=== PATIENT | male | born 2000 | race Caucasian/White ===

== ENCOUNTER 2024-06-01 10:21 | Outpatient (REF) | payer OTHER, SELFPAY ==
--- OUTSIDE RECORDS SUMMARY | 2024-06-01 11:07 | XMS_ITS | Encounter Summary ---
Author Organization [facility] Address [address] [place] [address] Phone Care Team Providers Care Chemical Laboratory Technician Name Role Phone Harley Salinas MD Primary Care Provider [phone] Reason for Visit * Reason Onset Date Comments Med Refill 12/24/2019 Encounter Details Date Type Department Care Team (Late st Contact Info) Description 12/24/2019 Refill [facility] - [place] [address] [place] [address] Harley Salinas MD [address] [place] [address] Current moderate episode of major depressive disorder without prior episode Social History Tobacco Use Types Packs/Day Years Used Date Smoking Tobacco: Never Smokeless Tobacco: Never Alcohol Use Standard Drinks/Week Comments No 0 (1 standard drink = 0.6 oz pur e alcohol) Hunger/Food Answer Date Recorded In the last 12 months, did y ou or your family ever eat less than you felt you should because there wasn't enough money for food? No 10/20/2019 Stable Housing Answer Date Recorded Are you worried that in the next 2 months you may not have stable housing? No 10/20/2019 Transportation Concerns Answer Date Rec orded In the last 12 months, have you or your family ever had to go without healthcare because you didn't have a way to get there? No 10/20/2019 Hazards in Home Answer Date Recorded Think about the place you li ve. Do you have problems with any of the following? Pests (mice or roaches), mold, no/not working smoke detectors, water leaks, no window guards. No 2019 Financing Utilities Answer Date Recorde d In the last 12 months, has t he electric, gas, oil, or water company threatened to shut off your services in your home? No 10/20/2019 Safety at Home Answer Date Recorded Are you or your family worried about feeling saf e in your home? No 10/20/2019 Outside Support Answer Date Recorded Do you feel that you need mo re support from other people or programs to help you care for yourself or your family? No 10/20/2019 Understanding Health Concerns Answer Da te Recorded Do you need help understandi ng your or your child's healthcare needs (diagnosis, medications, plan, etc.)? No 10/20/2019 Financing Health Concerns Answer Date R ecorded In the last 12 months, was t here a time when your child needed to see a doctor or get medications or supplies but could not because of cost? No 10/20/2019 Missing School or Work Answer Date Alber rded Did you or your child miss s chool or work because of a health problem that could have been avoided? No 10/20/2019 Sex and Gender Information Value Date Recorded Sex Assigned at Not on file Legal Sex Male 2:54 PM EST Gender Identity Male 10/17/2020 2:47 PM EDT Sexual Orientation Not on file documented as of this encounter Miscellaneous Notes * Telephone Encounter - Harley Salinas MD - 12/25/2019 12:12 PM EDT Please schedule a med check appt with me chago * Telephone Encounter - Chantell Nova LPN - 12/25/2019 7:56 AM EDT Refill requested for Kwadwo???s: Fluxetine Dose: 10 MG Refill request source: [facility] This medication was last refilled on 11/19/19. An office visit is not recommended. To be faxed electronically. [facility]/pharmacy #[id number] - [address] [address] PCP: Harley Salinas MD documented in this encounter Plan of Treatment Not on file documented as of this encounter Visit Diagnoses Diagnosis Current moderate episode of major depressive disorder without prior episode documented in this encounter Care Teams Chemical Laboratory Technician Relationship Specialty Start Date End Date Harley Salinas MD [address] [place] [address] PCP - General 06/19/16 01/16/23 documented as of this encounter
--- OUTSIDE RECORDS SUMMARY | 2024-06-01 11:07 | XMS_ITS | Encounter Summary ---
Author Organization [facility] Address [address] [place] [address] Phone Care Team Providers Care Roping Tender Name Role Phone Harley Salinas MD Primary Care Provider [phone] Reason for Visit * Reason Comments Med Refill Encounter Details Date Type Department Care Team (Late st Contact Info) Description 12/23/2019 Refill [facility] - [place] [address] [place] [address] Harley Salinas MD [address] [place] [address] Current moderate episode of major depressive disorder [...] on file documented as of this encounter Plan of Treatment Not on file documented as of this encounter Visit Diagnoses Diagnosis Current moderate episode of major depressive disorder without prior episode documented in this encounter Care Teams Roping Tender Relationship Specialty Start Date End Date Harley Salinas MD [address] [place] [address] PCP - General 06/19/16 01/16/23 documented as of this encounter
--- OUTSIDE RECORDS SUMMARY | 2024-06-01 11:07 | XMS_ITS | Encounter Summary ---
Author Organization [facility] Address [address] [place] [address] Phone Care Team Providers Care Residential Property Manager Name Role Phone Harley Salinas MD Primary Care Provider [phone] Reason for Visit * Reason Onset Date Comments Med Refill 12/25/2019 Encounter Details Date Type Department Care Team (Late st Contact Info) Description 12/25/2019 Refill [facility] Pediatrics - [place] [address] [place] [address] Harley Salinas MD [address] [place] [address] Current moderate episode of major depressive disorder [...] encounter Miscellaneous Notes * Telephone Encounter - Graciela Pierre LPN - 12/25/2019 2:43 PM EDT Duplicate request for fluoxetine. Rx sent documented in this encounter Plan of Treatment Not on file documented as of this encounter Visit Diagnoses Diagnosis Current moderate episode of major depressive disorder without prior episode documented in this encounter Care Teams Residential Property Manager Relationship Specialty Start Date End Date Harley Salinas MD [address] [place] [address] PCP - General 06/19/16 01/16/23 documented as of this encounter
--- OUTSIDE RECORDS SUMMARY | 2024-06-01 11:08 | XMS_ITS | Encounter Summary ---
Author Organization [facility] Address [address] [place] [address] Phone Care Team Providers Care Furnace Feeder Name Role Phone Harley Salinas MD Primary Care Provider [phone] Encounter Details Date Type Department Care Team (Late st Contact Info) Description 12/05/2016 Conversion Encounter [facility] Pediatrics - [address], [address] [place] [address] Harley Salinas MD [address] [place] [address] Social History Tobacco Use Types Packs/Day Years Used Date Smoking Tobacco: Never Assessed Sex and Gender Information Value Date Recorded Sex Assigned at Not on file Legal Sex Male 2:54 PM EST Gender Identity Male 10/17/2020 2:47 PM EDT Sexual Orientation Not on file documented as of this encounter Plan of Treatment Not on file documented as of this encounter Visit Diagnoses Not on filedocumented in this encounter Care Teams Furnace Feeder Relationship Specialty Start Date End Date Harley Salinas MD [address] [place] [address] PCP - General 06/19/16 01/16/23 documented as of this encounter
--- OUTSIDE RECORDS SUMMARY | 2024-06-01 11:08 | XMS_ITS | Clinical Summary ---
Author Organization [facility] Address [address] [place] [address] Phone Care Team Providers Care Remote Operations Producer Name Role Phone Unavailable Primary Care Provider Unavailabl e Allergies Active Allergy Reactions Criticality Noted Date Comments Cat Dander 11/01/2017 Dog Epithelium 11/01/2017 Dust Mite Extract 11/01/2017 Pollen Extract 11/01/2017 Tree Extract 11/01/2017 Medications escitalopram 10 MG tabletIndication s:Depression, unspecified depression type TAKE 1 TABLET BY MOUTH EVERY DAY IN THE MORNING 90 tablet Active Additional Information Patient not taking.Reported on 04/24/2022 Active Problems Problem Noted Date Diagnosed Date History of COVID-19 04/19/2022 Marijuana use 11/17/2020 Overview (11/17/2020): Daily use 10/2020 - requesting medical marijuana card for anxiety Assessment & Plan (11/17/2020 6:39 AM EDT): Recommend meeting with Yudith Puga at [facility] to discuss marijuana use Depression 10/22/2019 Overview (01/19/2021): Noted 09/2019 - referred for therapy Fluoxetine trial 10/2019 improved PHQ9 score - stopped on own 04/2020 as he felt 'dull' Suicide attempt in 2019 Assessment & Plan (01/19/2021 12:27 PM EDT): Moderate to severe depression. Recommend immediate therapy intervention and would also start another anti-depressant. Recommend trial of escitalopram 10 mg daily with recheck in one week. Referring for [facility] intervention, and then may refer to [facility] counseling services or community Assessment & Plan (11/17/2020 6:51 AM EDT): Recommend re-evaluation by Yudith Puga at [facility] and reconsideration of different SSRI or other medication. Recheck planned in one month Assessment & Plan (04/18/2020 2:34 PM EST): Stable -- continue current care Assessment & Plan (02/05/2020 10:36 AM EDT): Stable on current medication dose. Recommend continue therapy, continue fluoxetine at current dose. Recheck at annual well visit - to be scheduled in next few months Assessment & Plan (01/12/2020 8:22 AM EDT): Stable, slightly improving on fluoxetine. Recommend increase to 20 mg, recheck in 1 month Assessment & Plan (11/25/2019 9:46 AM EDT): Worsening depression and anxiety despite therapy. Recommend adding medication -- continue fluoxetine 10 mg daily, recheck by phone in 1-2 weeks, in office in 1 month Assessment & Plan (10/22/2019 4:56 PM EDT): Recommend meeting with [facility] behavioral health team today. Number given for Crisis and for Crisis text line Recommend follow-up after therapy intake to discuss medication in addition to therapy Visual disturbance 10/23/2016 Allergic rhinitis 02/04/2015 Overview (10/31/2017): Allergic to cats, dogs, dust mites, mold, grass, trees, blue cheese Immunizations Name Administration Dates Next Due DTaP 09/19/2005, 3,03/19/2002,01/13/2002, 2 Hep B, ped/adol 06/18/2002,2001,2001 Hib (PRP-T) 12/07/2002,03/19/2002,01/13/2002 ,2001 IPV 09/19/2005,09/10/2002,01/13/2002 ,2001 Influenza 03/12/2005,03/28/2004,02/17/2004 MMR 12/07/2002 MMRV 09/25/2006 Pneumococcal Conjugate 12/07/2002,03/19/2002,,2001 Tdap 11/24/2012 Varicella 09/10/2002 Family History Medical History Relation Name Comments No Known Problems Father Aortic stenosis Maternal Grandmother No Known Problems Mother Relation Name Status Comments Cousin Alive Father Alive Father's Brother Alive Maternal Grandfather Alive Maternal Grandmother Alive Mother Alive Paternal Grandfather Alive Paternal Grandmother Alive Social History Tobacco Use Types Packs/Day Years Used Date Smoking Tobacco: Never Smokeless Tobacco: Never Alcohol Use Standard Drinks/Week Comments No 0 (1 standard drink = 0.6 oz pur e alcohol) Hunger/Food Answer Date Recorded In the last 12 months, did y ou or your family ever eat less than you felt you should because there wasn't enough money for food? No 01/19/2021 Stable Housing Answer Date Recorded Are you worried that in the next 2 months you may not have stable housing? No 01/19/2021 Transportation Concerns Answer Date Rec orded In the last 12 months, have you or your family ever had to go without healthcare because you didn't have a way to get there? No 01/19/2021 Hazards in Home Answer Date Recorded Think about the place you li ve. Do you have problems with any of the following? Pests (mice or roaches), mold, no/not working smoke detectors, water leaks, no window guards. No 2020 Financing Utilities Answer Date Recorde d In the last 12 months, has t he electric, gas, oil, or water company threatened to shut off your services in your home? No 01/19/2021 Safety at Home Answer Date Recorded Are you or your family worried about feeling saf e in your home? No 01/19/2021 Outside Support Answer Date Recorded Do you feel that you need mo re support from other people or programs to help you care for yourself or your family? No 01/19/2021 Understanding Health Concerns Answer Da te Recorded Do you need help understandi ng your or your child's healthcare needs (diagnosis, medications, plan, etc.)? No 01/19/2021 Financing Health Concerns Answer Date R ecorded In the last 12 months, was t here a time when your child needed to see a doctor or get medications or supplies but could not because of cost? No 01/19/2021 Missing School or Work Answer Date Alber rded Did you or your child miss s chool or work because of a health problem that could have been avoided? No 01/19/2021 Sex and Gender Information Value Date Recorded Sex Assigned at Not on file Legal Sex Male 2:54 PM EST Gender Identity Male 10/17/2020 2:47 PM EDT Sexual Orientation Not on file Last Filed Vital Signs Vital Sign Reading Time Taken Comments Blood Pressure 112/73 01/19/2021 11:35 AM EDT Pulse 75 04/24/2022 10:59 AM EST Temperature 36.9 ??C (98.4 ??F) 04/24/2022 10:[address] Respiratory Rate - - Oxygen Saturation 99% 04/24/2022 10:59 AM EST Inhaled Oxygen Concentration - - Weight 65 kg (143 lb 6.4 oz) 01/19/2021 11:35 AM EDT Height 171.5 cm (5' 7.5 ) 01/19/2021 11:35 AM ED T Body Mass Index 22.13 01/19/2021 11:35 AM EDT Plan of Treatment Health Maintenance Due Date Last Done Comments HPV Vaccines (1 - Male 3-dose series) 2016 Men B Vaccine (1 of 2 - Standard) 2017 DTaP,Tdap,and Td Vaccines (7 - Td or Tdap) 11/24/2022 11/24/2012, 09/19/2005, 03/08/2003, Additional history exists Influenza Vaccines (#1) 2023 03/12/20, 03/28/2004, 02/17/2004 COVID-19 Vaccine ( season) 2023 05/03/2021, 08/26/2020, 08/05/2020 Hepatitis B Vaccines Completed 06/18/2002, 2001, 2001 HIB Vaccines Completed 12/07/2002, 02/28, 01/13/2002, Additional history exists Pneumococcal Vaccine Completed 12/07/2002, 03/19/2002, 01/13/2002, Additional history exists IPV Vaccines Completed 09/19/2005, 08/27, 01/13/2002, Additional history exists MMR Vaccines Completed 09/25/2006, 12/07/2002 Varicella Vaccines Completed 09/25/2006, 09/10/2002 Hepatitis A Vaccines Aged Out No long er eligible based on patient's age to complete this topic Meningococcal Vaccine Aged Out No dinesh zahida eligible based on patient's age to complete this topic
[2024-06-01 11:26] VITALS: BP 112/67; PULSE 74; RESP 16; TEMP 36.1; O2SAT 98; BMI 22.0
== END 2024-06-01 10:22 | disposition home or self-care (01) ==
LOC: HO.MS 10:21
PROVIDERS: PCP Family Medicine; Visit Provider Ophthalmology
PROC: (CPT 67800; principal; 2024-06-01 13:40)
DX: H00.11 Chalazion right upper eyelid (principal)
CPT/HCPCS: 67800; J2004